=== PATIENT | male | born 1980 | race Caucasian/White ===

== ENCOUNTER 2021-10-27 18:04 | Emergency (ER) | payer OTHER ==
[~2021-10-27] VITALS: Ht 180.3 cm; Wt 102.1 kg
--- NOTE | 2021-10-29 20:59 | NUR ---
RECORDS PROVIDED TO [facility] FIONA ALBARADO RN
== END 2021-10-27 23:15 | disposition home or self-care (01) ==
LOC: ED 18:04
DX: T67.5XXA Heat exhaustion, unspecified, initial encounter (principal); E86.0 Dehydration; Z20.822 Contact with and (suspected) exposure to COVID-19; X32.XXXA Exposure to sunlight, initial encounter
CPT/HCPCS: 36415; 71045; 80053; 81001; 82553; 85025; 87502; 96361; 96374; 99285-25; A9270; C9803; J2405; J7121; U0003